=== PATIENT | male | born 1950 | race Caucasian/White ===

== ENCOUNTER 2017-08-20 07:10 | Day surgery (SDC) | payer MEDICARE ==
[2017-08-17 12:25] VITALS: BMI 33.4
[2017-08-20] MEDS ORDERED: CEFAZOLIN/Water 2 GM/20 ML SYRINGE ONE (08:07)
[2017-08-20 08:11] LABS: #Basophils 0.1 thou/uL (0.0-0.2); #Eosinphils 0.3 thou/uL (0.0-0.7); #Lymphocytes 2.4 thou/uL (1.20-3.40); #Monocytes 0.5 thou/uL (0.11-0.59); #Neutrophils 3.4 thou/uL (1.40-6.50); %Eosinophils 4.3 % (0.0-10.0); %Lymphocytes 35.9 % (21.0-51.0); %Neutrophils 50.8 % (42.0-75.0); Hemoglobin 13.7 g/dL (14.0-18.0); Mean Corpuscular HGB CONC 34.5 g/dL (32.0-36.0); Mean Corpuscular Hemoglobin 32.9 pg (27.0-31.0); Mean Corpuscular Volume 95.4 fl (80.0-94.0); Mean Platelet Volume 6.8 fL (7.4-10.4); Platelet Count 242 thou/uL (130-400); RBC Distribution Width 12.3 % (11.5-14.5); Red Blood Cell (RBC) Count 4.17 mill/uL (4.70-6.10); White Blood Cell (WBC) Count 6.7 thou/uL (4.8-10.8)
[2017-08-20] MEDS ORDERED: Lidocaine 1% (PF) 30 ML VIAL ONE (08:12)
[2017-08-20] MEDS ORDERED: Midazolam HCl 2 mg/2 ml Vial ONE ×2 (08:13→08:20)
[2017-08-20] MEDS ORDERED: Fentanyl 100 MCG/2 ML VIAL ONE (08:13)
--- NOTE | 2017-08-20 10:54 | OP ---
DATE OF PROCEDURE: 08/20/2017. PREOPERATIVE DIAGNOSIS: Right carpal tunnel syndrome. POSTOPERATIVE DIAGNOSIS: Right carpal tunnel syndrome. PROCEDURES PERFORMED: 1. Right open carpal tunnel release. 2. Placement of short arm volar splint, right upper extremity. SURGEON: Tejinder Luong M.D. COVERAGE ANALYST: None. BLOOD LOSS: Minimal. COMPLICATIONS: None. ANESTHESIA: The patient had a general with a local addition. DISPOSITION: He went to recovery room in stable condition. INTRAOPERATIVE COMPLICATIONS: There were none, but it was noted that the tip of the scissors were mi ssing some metal, so C-arm was brought into the room to confirm that there was no metal in this man's wrist after the procedure was over and indeed, there was none. INDICATIONS: A 67-year-old active male who comes in complaining of numbness, tingling and pain in th e right hand that was confirmed on EMG/NCV to be carpal tunnel syndrome. At this time, he opted for surgical release. DESCRIPTION OF PROCEDURE: After all appropriate consent forms were explained and signed, the patient was taken back to the operating room and at this time was given IV sedation. A well-padded tourniqu et was placed on the right arm and the arm was then prepped and draped in the standard surgical fashi on. The incision was then drawn out and infiltrated with plain lidocaine. Limb was exsanguinated an d tourniquet taken up to 250 mmHg. At this time, using Loupe magnification, a 15 blade was used to i ncise down through skin. Bipolar cautery was used to coagulate any brisk venous bleeding. We then p laced a small hemostat to protect the underlying median nerve and transected the transverse carpal li gament using multiple 15 blades as well as scissors. Once this was done, a small finger was inserted to palpate for any remaining bands. At this time, a moist Ray-Romel sponge was placed into the wound. Tourniquet was let down and pressure was held. Bipolar cautery used to coagulate any brisk venous bleeding. The wound was then irrigated with saline solution and we then evaluated the nerve. The ne rve was found to be significantly injected, the nerve was intact, there were no masses noted, and the underlying flexor tendons were in good condition. At this time, we irrigated and dried the wound. We then placed multiple nylon stitches to close the incision. A bulky sterile hand dressing and a all volar splint were then made. The patient was then awakened and taken to recovery in stable condi tion. All counts were correct at the end of the case. The patient received preoperative IV antibiot ics. It was noted during the procedure that the tip of the scissors were missing some metal. It was not f elt that this happened during this case, but I wanted to make sure that there was no metal in the car pal tunnel in this man's wrist. Therefore, a C-arm was brought in, AP and lateral radiographs were t aken to confirm that indeed there was no metallic object in the man's wrist. This did add jory lauro 8-10 minutes to his surgical time.
--- NOTE | 2017-08-20 15:30 | RAD ---
SINGLE FLUOROSCOPIC IMAGE OF THE RIGHT WRIST: History: Rule out foreign body. FINDINGS: Single provided intraoperative image of the right wrist is in a lateral to slightly oblique projectio n. No visible radiopaque foreign body is evident. No definite acute osseous abnormality is noted. Tot al fluoroscopic time was 4.8 seconds. Total exposure was 0.2 mGy*cm^2. IMPRESSION: No radiopaque foreign body. POS: [facility]
[2017-08-20] MEDS ORDERED: PROPOFOL 200 MG/20 ML VIAL ONE (15:31)
[2017-08-20] MEDS ORDERED: Lidocaine 1% PF 5 ML VIAL ONE (15:31)
== END 2017-08-20 11:30 | disposition home or self-care (01) ==
LOC: SDC 07:10
PROVIDERS: ATTEND Orthopaedic Surgery
PROC: 01N50ZZ Release Median Nerve, Open Approach (ICD-10-PCS; principal; 2017-08-20)
DX: G56.03 Carpal tunnel syndrome, bilateral upper limbs (principal); I10 Essential (primary) hypertension; K21.9 Gastro-esophageal reflux disease without esophagitis; Z96.643 Presence of artificial hip joint, bilateral
CPT/HCPCS: 36415; 76000; 85025; 93005; 93010; J2001; J2250; J2704; J3010

== ENCOUNTER 2017-09-21 06:10 | Day surgery (SDC) | payer MEDICARE ==
[2017-09-20 10:19] VITALS: BMI 33.4
[2017-09-21] MEDS ORDERED: Lidocaine 2% Jelly 5 ML TUBE ONE (06:19)
[2017-09-21] MEDS ORDERED: Fentanyl 100 MCG/2 ML VIAL ONE (06:19)
[2017-09-21] MEDS ORDERED: Propofol 500 MG/50 ML VIAL ONE (06:20)
[2017-09-21] MEDS ORDERED: CEFAZOLIN/Water 2 GM/20 ML SYRINGE ONE (06:48)
[2017-09-21] MEDS ORDERED: Lidocaine 1% (PF) 30 ML VIAL ONE (06:51)
[2017-09-21 06:58] LABS: #Basophils 0.1 thou/uL (0.0-0.2); #Eosinphils 0.4 thou/uL (0.0-0.7); #Lymphocytes 2.8 thou/uL (1.20-3.40); #Monocytes 0.6 thou/uL (0.11-0.59); #Neutrophils 3.7 thou/uL (1.40-6.50); %Basophils 1.2 % (0.0-1.0); %Eosinophils 5.8 % (0.0-10.0); %Lymphocytes 36.6 % (21.0-51.0); %Monocytes 7.2 % (0.0-10.0); %Neutrophils 49.3 % (42.0-75.0); Hemoglobin 14.3 g/dL (14.0-18.0); Mean Corpuscular HGB CONC 34.1 g/dL (32.0-36.0); Mean Corpuscular Hemoglobin 32.7 pg (27.0-31.0); Mean Corpuscular Volume 96.1 fl (80.0-94.0); Mean Platelet Volume 6.9 fL (7.4-10.4); Platelet Count 255 thou/uL (130-400); RBC Distribution Width 12.5 % (11.5-14.5); Red Blood Cell (RBC) Count 4.38 mill/uL (4.70-6.10); White Blood Cell (WBC) Count 7.6 thou/uL (4.8-10.8)
--- NOTE | 2017-09-21 08:40 | OP ---
DATE OF PROCEDURE: 09/21/2017 PREOPERATIVE DIAGNOSIS: Left carpal tunnel syndrome. POSTOPERATIVE DIAGNOSIS: Left carpal tunnel syndrome. PROCEDURE PERFORMED: 1. Left open carpal tunnel release. 2. Placement of short arm volar splint left upper extremity. SURGEON: Tejinder Lunog M.D. POLITICAL SCIENCE INSTRUCTOR: None. BLOOD LOSS: Minimal. COMPLICATIONS: None. DISPOSITION: He did go to day stay in stable condition. INDICATIONS: This is a 67-year-old male who had bilateral carpal tunnel syndrome with the right side being worse than the left. He has had the right side released approximately a month ago and at this time is doing very well from this. At this time he is presenting for left-sided release. DESCRIPTION OF PROCEDURE: After all appropriate consent forms were explained and signed, the patient was taken back to the operating room and at this time was given IV sedation. A well-padded tourniqu et was placed on the left arm and the arm was then prepped and draped in the standard surgical fashio n. The incision was then drawn out and infiltrated with plain lidocaine. Limb was exsanguinated and tourniquet taken up to 250 mmHg. At this time, using Loupe magnification, a 15 blade was used to in cise down through skin. Bipolar cautery was used to coagulate any brisk venous bleeding. We then pl aced a small hemostat to protect the underlying median nerve and transected the transverse carpal lig ament using multiple 15 blades as well as scissors. Once this was done, a small finger was inserted to palpate for any remaining bands. At this time, a moist Ray-Romel sponge was placed into the wound. Tourniquet was let down and pressure was held. Bipolar cautery used to coagulate any brisk venous b leeding. The wound was then irrigated with saline solution and we then evaluated the nerve. The ner ve was found to be significantly injected, the nerve was intact, there were no masses noted, and the underlying flexor tendons were in good condition. At this time, we irrigated and dried the wound. W e then placed multiple nylon stitches to close the incision. A bulky sterile hand dressing and a sma ll volar splint were then made. The patient was then awakened and taken to recovery in stable condit ion. All counts were correct at the end of the case. The patient received preoperative IV antibioti cs.
== END 2017-09-21 09:18 | disposition home or self-care (01) ==
LOC: SDC 06:10
PROVIDERS: ATTEND Orthopaedic Surgery
PROC: 01N50ZZ Release Median Nerve, Open Approach (ICD-10-PCS; principal; 2017-09-21)
DX: G56.02 Carpal tunnel syndrome, left upper limb (principal); Z88.5 Allergy status to narcotic agent; Z79.82 Long term (current) use of aspirin; Z79.899 Other long term (current) drug therapy; Z98.890 Other specified postprocedural states
CPT/HCPCS: 85025; J2001; J2704; J3010

== ENCOUNTER 2022-08-03 12:44 | Outpatient (CLI) | payer MEDICARE | END 2022-08-03 12:45 | disposition home or self-care (01) | LOC: SCSMRI 12:44 | PROVIDERS: ATTEND Orthopaedic Surgery | DX: M17.11 Unilateral primary osteoarthritis, right knee (principal); S83.231A Complex tear of medial meniscus, current injury, right knee, initial encounter; R60.0 Localized edema; M71.21 Synovial cyst of popliteal space [Baker], right knee ==